=== PATIENT | male | born 1980 | race Caucasian/White ===

== ENCOUNTER → 2021-04-25 17:22 | Outpatient (CLI) | payer BC, SELFPAY ==
[2021-04-25 18:21] LABS: Basophils % 0.7 % (0.1-2.0); Eosinophils # 0.2 K/mm3 (0.0-0.4); Eosinophils % 3.6 % (0.1-12.0); Hemoglobin 16.4 g/dL (14.1-18.0); Lymphocytes # 1.4 K/mm3 (0.7-4.5); Lymphocytes % 28.9 % (10-50); Mean Corpuscular HGB Conc 34.2 g/dL (31.8-35.4); Mean Corpuscular Hemoglobin 34.1 pg (27.0-31.2); Mean Corpuscular Volume 99.5 fl (80-94); Mean Platelet Volume 11.3 fl (7.4-10.4); Monocytes # 0.3 K/mm3 (0.1-1.0); Monocytes % 5.5 % (1.7-9.3); Neutrophils % 61.2 % (37.0-80.0); Platelet Count 242 K/mm3 (142-424); Red Blood Count 4.83 M/mm3 (4.60-6.20); Red Cell Distribution Width 14.6 % (11.5-17.5); White Blood Count 4.9 K/mm3 (4.8-10.8)
[2021-04-25 18:26] LABS: Alanine Aminotransferase 24 U/L (12-78); Albumin/Globulin Ratio 1.7 (1.1-1.8); Alkaline Phosphatase 93 U/L (38-126); Anion Gap 14.9 mEq/L (5-15); Aspartate Amino Transferase 46 U/L (17-59); Bilirubin,Total 0.8 mg/dl (0.2-1.3); Blood Urea Nitrogen 13 mg/dl (9-20); Carbon Dioxide 26 mmol/L (22.0-30.0); Chloride 102 mmol/L (98-107); Chol/HDL Ratio 1.8 (1-3.5); Cholesterol 180 mg/dl (140-200); Estimated Glomerular Filt Rate 124 ml/min (>60); GFR (African American) 150 ML/MIN (>60); Glucose 87 mg/dl (74-100); HDL Cholesterol 100 mg/dl (40-60); Potassium 4.9 mmoL/L (3.5-5.1); Sodium 138 mmol/L (136-145); Triglycerides 243 mg/dl (30-150); VLDL Cholesterol 49 mg/dL (0-40)
[2021-04-25 18:37] LABS: Direct LDL Cholesterol 57.23 mg/dL (100-129)
[2021-04-25 18:47] LABS: Amphetamine/Metha Screen,Urine Negative ng/ml (<1000); Barbiturates Screen,Urine Negative ng/ml (<200)
[2021-04-25 18:48] LABS: Benzodiazepines Screen,Urine Negative ng/ml (<200)
[2021-04-25 18:49] LABS: Cannabinoid Screen,Urine Negative ng/ml (<50); Cocaine Screen,Urine Negative ng/ml (<300)
[2021-04-25 18:50] LABS: Methadone Screen,Urine Negative ng/ml (<300)
[2021-04-25 18:51] LABS: Opiate Screen,Urine Negative ng/ml (<300); Phencyclidine Screen,Urine Negative ng/ml (<25)
[2021-04-25 18:56] LABS: Thyroid Stimulating Hormone 1.17 uIU/mL (0.465-4.68)
[2021-04-25 20:05] LABS: Ferritin 22.1 ng/ml (17.9-464)
[2021-05-03 15:18] LABS: Testosterone, Total, LC/MS 1025.6 ng/dL (264.0-916.0); Testosterone,Free 8.9 pg/mL (6.8-21.5)
[2021-05-07 20:09] LABS: 1,25 Dihydroxy Vitamin D 84 pg/mL (.); 1,25-Dihydroxy, Vitamin D-2 <10 pg/mL (.); 1,25-Dihydroxy, Vitamin D-3 82 pg/mL (.)
== END ==
PROVIDERS: Visit Provider Family Medicine
DX: Z00.00 Encounter for general adult medical examination without abnormal findings (principal); F90.9 Attention-deficit hyperactivity disorder, unspecified type; R53.83 Other fatigue
CPT/HCPCS: 80053; 80061; 80305; 82652; 82728; 84402; 84403; 84443; 85025

== ENCOUNTER → 2022-01-03 07:50 | Outpatient (CLI) | payer BC, SELFPAY ==
[2022-01-02 18:10] LABS: 25-OH Vitamin D, Total 122 ng/mL (30-100)
[2022-01-02 18:25] LABS: Thyroid Stimulating Hormone 1.17 uIU/mL (0.465-4.68)
[2022-01-02 18:29] LABS: Ferritin 17.8 ng/ml (17.9-464)
[2022-01-08 11:28] LABS: Testosterone, Total, LC/MS 523.9 ng/dL (264.0-916.0); Testosterone,Free 4.5 pg/mL (6.8-21.5)
[2022-01-08 13:19] LABS: Candida Antibodies IgA Negative (Negative); Candida Antibodies IgG Negative (Negative); Candida Antibodies IgM Negative (Negative)
== END ==
PROVIDERS: PCP Family Medicine; Visit Provider Family Medicine
DX: A69.20 Lyme disease, unspecified (principal); E61.1 Iron deficiency; E67.3 Hypervitaminosis D
CPT/HCPCS: 82306; 82728; 84402; 84403; 84443; 86628; 86677; 86777

== ENCOUNTER → 2022-02-12 06:23 | Outpatient (CLI) | payer BC, SELFPAY ==
[2022-02-11 19:20] LABS: Basophils # 0.1 K/mm3 (0-0.2); Basophils % 1.1 % (0.1-2.0); Eosinophils # 0.1 K/mm3 (0.0-0.4); Eosinophils % 2.6 % (0.1-12.0); Hemoglobin 15.3 g/dL (14.1-18.0); Lymphocytes # 1.3 K/mm3 (0.7-4.5); Lymphocytes % 24.2 % (10-50); Mean Corpuscular HGB Conc 34.9 g/dL (31.8-35.4); Mean Corpuscular Hemoglobin 32.6 pg (27.0-31.2); Mean Corpuscular Volume 93.4 fl (80-94); Mean Platelet Volume 9.4 fl (7.4-10.4); Monocytes # 0.4 K/mm3 (0.1-1.0); Monocytes % 6.8 % (1.7-9.3); Neutrophils # 3.5 K/mm3 (1.8-7.8); Neutrophils % 65.3 % (37.0-80.0); Platelet Count 217 K/mm3 (142-424); Red Blood Count 4.71 M/mm3 (4.60-6.20); Red Cell Distribution Width 13.3 % (11.5-17.5); White Blood Count 5.3 K/mm3 (4.8-10.8)
[2022-02-11 19:23] LABS: Iron 173 ug/dL (49-181)
[2022-02-11 19:55] LABS: Thyroid Stimulating Hormone 0.91 uIU/mL (0.465-4.68)
[2022-02-13 08:16] LABS: Testosterone,Total 517 ng/dL (264-916)
== END ==
PROVIDERS: PCP Family Medicine; Visit Provider Family Medicine
DX: E61.1 Iron deficiency (principal); S30.1XXA Contusion of abdominal wall, initial encounter
CPT/HCPCS: 82728; 83540; 84403; 84443; 85025

== ENCOUNTER → 2022-08-04 12:20 | Outpatient (CLI) | payer BC, SELFPAY ==
[2022-08-04 16:26] LABS: Iron 121 ug/dL (49-181)
[2022-08-04 16:58] LABS: Total Iron Binding Capacity 285 ug/dL (261-462)
[2022-08-12 02:08] LABS: Testosterone, Total, LC/MS 1105 ng/dL (.)
== END ==
PROVIDERS: PCP Family Medicine; Visit Provider Family Medicine
DX: R53.83 Other fatigue (principal)
CPT/HCPCS: 83540; 83550; 84403; 84443